=== PATIENT | female | born 1995 | race Caucasian/White ===

== ENCOUNTER 2016-12-30 13:46 | Emergency (ER) | payer OTHER ==
--- NOTE | 2016-12-30 14:58 | UC ---
Psychiatric Complaint HPI - HPI Summary HPI Summary: The patient comes in today for: 1. "Panic attacks" ("limbs are wobbly, stomach is jumbly and nauseated, shortness of breath--getting better, brain is busy, headaches"): Onset: This present condition has been present x 1 hour. Initial onset 16 years of age. Palliative/provocative: Walking, breathing, distractions makes it better. Quality: Usually, she only has shortness of breath and "jumbly" limbs. She states that she can also have "convoluted." Region: [place]. Severity: This panic attack is 7/10 with the previous ones being 4/10 Associated symptoms: Previous treatment: She is only seeing a therapist. She has not had any medications for this. She was hospitalized in July of 2015 here in [place]. Frequency: last one was 1.5 years ago. 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 Fevers: None. Depression: None. No suicidal thoughts or homicidal thoughts. Precipitating events: Several ones have started and have contributed to her anxiety. Stimulants: I cup of coffee a day. She is an [employer] student and she is from [facility]). * - History Of Current Complaint Chief Complaint: UCPsych Stated Complaint: PANIC ATTACK Time Seen by Provider: 12/30/16 14:51 Hx Obtained From: Patient Hx Last Menstrual Period: 12/27/16 ?: No - Allergies/Home Medications Allergies/Adverse Reactions: Allergies Allergy/AdvReac Type Severity Reaction Status Date / Time No Known Allergies Allergy Verified 07/23/15 20:56 PMH/Surg Hx/FS Hx/Imm Hx Previously Healthy: No Endocrine History Of: Denies: Diabetes, Thyroid Disease, Hyperthyroidism, Hypothyroidism, Dyslipidemia Cardiovascular History Of: Denies: Cardiac Disorders, Hypertension, Pacemaker/ICD, Myocardial Infarction , Congestive Heart Failure, Atrial Fibrillation, Deep Vein Thrombosis, Bleeding Disorders Respiratory History Of: Denies: COPD, Asthma, Bronchitis, Pneumonia, Pulmonary Embolism GI/ History Of: Denies: Gastroesophageal Reflux, Ulcer, Gastrointestinal Bleed, Gall Bladder Disease, Kidney Stones, Diverticulitis, Renal Disease, Urosepsis Neurological History Of: Denies: TIA, CVA, Dementia, Seizures, Migraine Psychological History Of: Reports: Anxiety Denies: Depression, Bipolar Disorder, Schizophrenia, Post Traumatic Stress Disorder Cancer History Of: Denies: Lung Cancer, Colorectal Cancer, Breast Cancer, Prostate Cancer, Cervical Cancer Other History Of: Negative For: HIV, Hepatitis B, Hepatitis C - Surgical History Surgical History: None - Family History Known Family History: Positive: Hypertension Negative: Cardiac Disease - Social History Occupation: Student Alcohol Use: Occasionally Substance Use Type: None Smoking Status (MU): Never Smoked Tobacco Review of Systems Constitutional: Negative Skin: Negative Eyes: Negative ENT: Negative Respiratory: Negative Cardiovascular: Negative Gastrointestinal: Negative Genitourinary: Negative All Other Systems Reviewed And Are Negative: Yes Physical Exam Triage Information Reviewed: Yes Appearance: Well-Appearing, No Pain Distress, Well-Nourished Vital Signs: Initial Vital Signs Temp 99.1 F 12/30/16 13:55 Pulse 81 12/30/16 13:55 Resp 16 12/30/16 13:55 BP 98/60 12/30/16 13:55 Pulse Ox 100 12/30/16 13:55 Vital Signs Reviewed: Yes Eyes: Positive: Conjunctiva Clear. Negative: Discharge ENT: Positive: Hearing grossly normal. Negative: Pharyngeal erythema, Nasal congestion, Nasal drainage, TM bulging, TM dull, TM red, Tonsillar swelling, Tonsillar exudate Dental: Negative: Gross Decay/Caries @, Dental Fracture @ Neck: Positive: Supple, Nontender, No Lymphadenopathy. Negative: Nuchal Rigidity Respiratory: Positive: Chest non-tender, Lungs clear, No respiratory distress, No accessory muscle use Cardiovascular: Positive: RRR, No Murmur Abdomen Description: Positive: No Organomegaly, Soft, McBurney's Point Tenderness. Negative: Nontender - She has tenderness of the suprapubic area ( no rebound) and long the LRQ. She has her appendix. There is no rebound in the RLQ and no percussion tenderness of either., Distended, Guarding, Peritoneal Signs Musculoskeletal: Positive: Strength Intact, ROM Intact, No Edema Neurological: Positive: Alert, Muscle Tone Normal, Other: - Neurologic exam: Inspection: No fasciculations. Tone: No rigidity. CN II-XII: no deficit Reflexes: Upper (biceps, triceps, brachioradialis): +2/2 x 2 Lower (patellar, Achilles): +2/2 x 2 Strenth: Upper: (biceps, triceps , deltoid): Normal and symmetrical Lower: (quads, hamstrings, calf, and dorsiflexion): Normal and symmetrical Coordination: Upper: (rapid patting of thighs including alternating, finger tips to thumbs index finger to nose): normal and symmetrical Lower: (heel up and down peter): normal and symmetrical Rhomberg: Normal Gait: Normal. Psychological: Positive: Age Appropriate Behavior, Consolable Skin: Negative: rashes, breakdown Psych Complaint Course/Dx - Course Course Of Treatment: The patient was told that there are many causes of pain--some benign and some. lifethreatening. The patient was also told that of the life-threatening conditions--. they may be present with minimal, atypical and even no symptoms. These facts result in. us having to rely on testing to determine what is causing this pain. We are not. set up to offer all these tests here at the urgent care. The safest thing is to. go to the ER where such testing is available. She refuses to go to the ER. She was also told of her treatment options for her anxiety/panic attacks. She wants to try lorazepam. - Differential Dx/Diagnosis Provider Diagnoses: panic attacks/anxiety. abdominal pain. Discharge - Discharge Plan Condition: Stable Disposition: AGAINST MEDICAL ADVICE Prescriptions: LORazepam TAB(*) [Ativan 0.5 MG TAB (*)] 1 - 2 tab PO Q8H PRN #30 tab MDD 6 PRN Reason: Anxiety Patient Education Materials: Anxiety (ED) Referrals: No Primary Care Phys,NOPCP [Primary Care Provider] - Additional Instructions: Please see the student health center at [facility] or us in about a week to see how well you are doing for your anxiety. If you are not going to the ER for your abdominal pain, please reconsider if your pain gets worse.
[2016-12-30 16:57] VITALS: BP 92/59
== END 2016-12-30 15:54 | disposition left against medical advice (07) ==
LOC: UCEAST 13:46
DX: F41.0 Panic disorder [episodic paroxysmal anxiety] (principal); R10.9 Unspecified abdominal pain
CPT/HCPCS: 99212; G0463

== ENCOUNTER → 2017-05-01 21:30 | Emergency (ER) | payer OTHER ==
[~2017-05-01 21:30] MED LIST: Sulfamethox/Trimethoprim DS 800/160* TAB PO ONE
[2017-05-01 22:09] LABS: Manual Entry Verification ROB0080; UR Preg Internal Control QC Line Present
[2017-05-01 22:12] LABS: Urine Bacteria 1+ (Absent); Urine Bilirubin Negative (Negative); Urine Glucose Negative (Negative); Urine Nitrite Negative (Negative)
--- NOTE | 2017-05-01 23:45 | ED ---
GI/ HPI - HPI Summary HPI Summary: 21 y/o female with h/o UTI in past, now with blood in urine, frequent urination , painful urinatino. + recent sexual intercourse. no fever, no flank pain. no chills. last UTI 10/2016. unknown ABX treatment pt is student at [employer], [facility] states early this week, treated with cranberry pills. - History of Current Complaint Chief Complaint: EDUrogenitalProblems Time Seen by Provider: 05/01/17 23:36 Stated Complaint: BLOOD IN URINE Hx Obtained From: Patient Hx Last Menstrual Period: 12/27/16 Onset/Duration: Started Days Ago Timing: Constant Severity: Mild Current Severity: Moderate Pain Intensity: 9 Location of Pain: Suprapubic Pain Characteristics: Sharp, Burning, Pressure Associated Signs and Symptoms: Positive: Hematuria, Dysuria, UTI Symptoms - Allergy/Home Medications Allergies/Adverse Reactions: Allergies Allergy/AdvReac Type Severity Reaction Status Date / Time No Known Allergies Allergy Verified 07/23/15 20:56 PMH/Surg Hx/FS Hx/Imm Hx Previously Healthy: Yes - h/o uti Endocrine/Hematology History: Denies: Hx Diabetes, Hx Thyroid Disease Cardiovascular History: Denies: Hx Congestive Heart Failure, Hx Deep Vein Thrombosis, Hx Hypertension , Hx Myocardial Infarction, Hx Pacemaker/ICD Respiratory History: Denies: Hx Asthma, Hx Chronic Obstructive Pulmonary Disease (COPD), Hx Lung Cancer, Hx Pneumonia, Hx Pulmonary Embolism GI History: Denies: Hx Gall Bladder Disease, Hx Gastrointestinal Bleed, Hx Ulcer, Hx Urosepsis History: Denies: Hx Kidney Stones, Hx Renal Disease Neurological History: Denies: Hx Dementia, Hx Migraine, Hx Seizures, Hx Transient Ischemic Attacks (TIA) Psychiatric History: Reports: Hx Anxiety Denies: Hx Depression, Hx Schizophrenia, Hx Bipolar Disorder Infectious Disease History: No Infectious Disease History: Reports: Traveled Outside the [place] in Last 30 Days - [place] - Family History Known Family History: Positive: Hypertension Negative: Cardiac Disease - Social History Alcohol Use: Occasionally Substance Use Type: Reports: None Smoking Status (MU): Never Smoked Tobacco Review of Systems Constitutional: Negative Positive: burning, dysuria, frequency, hematuria All Other Systems Reviewed And Are Negative: Yes Physical Exam Triage Information Reviewed: Yes Vital Signs On Initial Exam: Initial Vitals Temp Pulse Resp BP Pulse Ox 97.4 F 76 16 109/63 100 05/01/17 21:39 05/01/17 21:39 05/01/17 21:39 05/01/17 21:39 05/01/17 21:39 Vital Signs Reviewed: Yes Appearance: Positive: Well-Appearing, No Pain Distress, Well-Nourished Skin: Positive: Warm Head/Face: Positive: Normal Head/Face Inspection Abdomen Description: Positive: No Organomegaly, Soft, CVA Tenderness (R) - minimal, Other: - spurapubic tenderness Neurological: Positive: Normal Psychiatric: Positive: Normal - [place] Coma Scale Coma Scale Total: 15 Diagnostics - Vital Signs Vital Signs Temp Pulse Resp BP Pulse Ox 05/01/17 21:41 98.7 F 67 16 109/63 100 05/01/17 21:39 97.4 F 76 16 109/63 100 - Laboratory Lab Results: Lab Results 05/01/17 Range/Units 21:55 Urine Color Red A Urine Appearance Cloudy Urine pH 6.0 (5-9) Ur Specific [place] 1.021 (1.010-1.030) Urine Protein 2+(100 mg/dl) H (Negative) Urine Ketones Negative (Negative) Urine Blood 3+ H (Negative) Urine Nitrate Negative (Negative) Urine Bilirubin Negative (Negative) Urine Urobilinogen Negative (Negative) Ur Leukocyte Esterase 3+ H (Negative) Urine WBC (Auto) 3+(>20/hpf) H (Absent) Urine RBC (Auto) 3+(>10/hpf) H (Absent) Ur Squamous Epith Cells Present H (Absent) Urine Bacteria 1+ H (Absent) Urine Glucose Negative (Negative) Urine Ascorbic Acid Not Reportable Urine Test Negative (Negative) Lab Statement: Any lab studies that have been ordered have been reviewed, and results considered in the medical decision making process. GIGU Course/Dx - Course Course Of Treatment: UA + for bacteria, likely UTI, patient placed on ABX, educated on photosensitivity, f/u with cultures. - Diagnoses Differential Diagnoses - Female: , Pelvic Inflammatory Disease Provider Diagnoses: Urinary tract infection Discharge - Discharge Plan Condition: Stable Disposition: HOME Prescriptions: Sulfamethox/Trimethoprim DS* [Bactrim DS 800/160 TAB*] 1 tab PO BID #10 tab Patient Education Materials: Urinary Tract Infection in Women (ED) Referrals: [facility] [Primary Care Provider] - Additional Instructions: - use back up control until next menses - avoid sunlight while on bactrim - increase fluid intake - follow up with primary physician within 2-3 days if no improvement - return to ER with fever, chills, back pain or increased symptoms
[2017-05-01 23:52] VITALS: BP 108/55
== END | disposition home or self-care (01) ==
LOC: ED 21:30
DX: N39.0 Urinary tract infection, site not specified (principal)
CPT/HCPCS: 81003; 81015; 81025; 87086; 99282; A9270-GY

== ENCOUNTER 2017-11-20 11:39 | Emergency (ER) | payer OTHER ==
--- NOTE | 2017-11-20 12:51 | ED ---
Head Injury - HPI Summary HPI Summary: 22 female presents to ED with complaints of a head injury that occurred last night around 12am~ 13 hours ago. Patient states she had two glasses of wine and then smoked marijuana, felt weak and collapsed to the ground. Unknown LOC however does remember the entire event. States she remembers hitting her head on the floor but denies any signs of trauma. Does have some pain to right back of head that radiates into right neck however no hematoma, bruising or other signs of trauma. States pain is worsened with exertion, has improved since. Denies nausea, vomiting, vision changes, gait disturbance, altered mental status , lethary, trouble concentrating and memory loss. Has not tried any medication for her headache however did not have anything at home too try. States headache is minimal and in the back right area of her head, feels typical. No other complaints of injuries. No PMHx. No anticoagulant use. No history of syncope. - History Of Current Complaint Chief Complaint: EDHeadInjury Stated Complaint: FALL/HEAD INJURY Time Seen by Provider: 11/20/17 12:05 Hx Obtained From: Patient Hx Last Menstrual Period: 12/27/16 Mechanism Of Injury: Fall From A Standing Position Onset/Duration: Started Hours Ago, Traumatic, Still Present, Resolved - some Onset of Pain: Hours, Post Accident Severity Currently: Moderate Severity Initially: Mild Pain Intensity: 5 Pain Scale Used: 0-10 Numeric Location of Head Injury: Occipital Character: Pressure, Aching Aggravating Factor(s): Movement Alleviating Factor(s): Rest Associated Signs And Symptoms: LOC Duration Unknown - unknown if even did lose LOC, patient remembers entire event, Headache - Allergies/Home Medications Allergies/Adverse Reactions: Allergies Allergy/AdvReac Type Severity Reaction Status Date / Time No Known Allergies Allergy Verified 07/23/15 20:56 PMH/Surg Hx/FS Hx/Imm Hx Endocrine/Hematology History: Denies: Hx Diabetes, Hx Thyroid Disease Cardiovascular History: Denies: Hx Congestive Heart Failure, Hx Deep Vein Thrombosis, Hx Hypertension , Hx Myocardial Infarction, Hx Pacemaker/ICD Respiratory History: Denies: Hx Asthma, Hx Chronic Obstructive Pulmonary Disease (COPD), Hx Lung Cancer, Hx Pneumonia, Hx Pulmonary Embolism GI History: Denies: Hx Gall Bladder Disease, Hx Gastrointestinal Bleed, Hx Ulcer, Hx Urosepsis History: Denies: Hx Kidney Stones, Hx Renal Disease Neurological History: Denies: Hx Dementia, Hx Migraine, Hx Seizures, Hx Transient Ischemic Attacks (TIA) Psychiatric History: Reports: Hx Anxiety Denies: Hx Depression, Hx Schizophrenia, Hx Bipolar Disorder - Surgical History Surgery Procedure, Year, and Place: n/a - Immunization History Immunizations Up to Date: Yes Infectious Disease History: No Infectious Disease History: Denies: Traveled Outside the [place] in Last 30 Days - Family History Known Family History: Positive: Hypertension Negative: Cardiac Disease - Social History Alcohol Use: Occasionally Substance Use Type: Reports: None Smoking Status (MU): Never Smoked Tobacco Review of Systems Constitutional: Negative Eyes: Negative ENT: Negative Cardiovascular: Negative Respiratory: Negative Positive: Myalgia - right neck Skin: Negative Positive: Headache All Other Systems Reviewed And Are Negative: Yes Physical Exam Triage Information Reviewed: Yes Vital Signs On Initial Exam: Initial Vitals Temp Pulse Resp BP Pulse Ox 98.8 F 72 18 97/59 98 11/20/17 11:41 11/20/17 11:41 11/20/17 11:41 11/20/17 11:41 11/20/17 11:41 Vital Signs Reviewed: Yes Appearance: Positive: Well-Appearing, No Pain Distress, Well-Nourished Skin: Positive: Warm, Skin Color Reflects Adequate Perfusion, Dry, Other - no hematoma or bruising. Negative: Cold, Numb, Tender, Cyanosis @, Pale, Erythema @ Head/Face: Positive: Normal Head/Face Inspection. Negative: Temporal Artery Tenderness, TMJ Tenderness, Scalp Eyes: Positive: Normal, EOMI, BOB, Conjunctiva Clear, Other: - normal visual acuity ENT: Positive: Normal ENT inspection, Hearing grossly normal, Pharynx normal, TMs normal, Uvula midline. Negative: Pharyngeal erythema, Nasal congestion, Nasal drainage, Tonsillar swelling, Tonsillar exudate Neck: Positive: Supple, Nontender, No Lymphadenopathy, Other: - right side/ musclar tenderness no bony tenderness Respiratory/Lung Sounds: Positive: Clear to Auscultation, Breath Sounds Present. Negative: Rales, Rhonchi, Wheezes Cardiovascular: Positive: Normal, RRR, Pulses are Symmetrical in both Upper and Lower Extremities. Negative: Murmur, Rub Abdomen Description: Positive: Nontender, Soft Bowel Sounds: Positive: Present Musculoskeletal: Positive: Normal, Strength/ROM Intact. Negative: Limited @, Abnormal @, Pain @, Edema Left, Edema Right Neurological: Positive: Normal - memory and concentration intact, normal neuro exam without deficit, Sensory/Motor Intact, Alert, Oriented to Person Place, Time, CN Intact II-III, Reflexes Intact, NV Bundle Intact Distally, Normal Gait , Heel to Toe - normal, Finger to Nose - normal, Facial Symmetry, Speech Normal. Negative: Slurred Speech, Rhomberg - Zack Coma Scale Best Eye Response: 4 - Spontaneous Best Motor Response: 6 - Obeys Commands Best Verbal Response: 5 - Oriented Coma Scale Total: 15 Diagnostics - Vital Signs Vital Signs Temp Pulse Resp BP Pulse Ox 11/20/17 11:41 98.8 F 72 18 97/59 98 - Laboratory Lab Statement: Any lab studies that have been ordered have been reviewed, and results considered in the medical decision making process. Head Injury Course/Dx Course Of Treatment: given ibuprofen while in ED. Patient had normal neuro and physical exam, normal vitals. and is in normal appearance without any concerning signs. according to MARIE/HPI, PE and [place] scan rule did not appear to require any further work up at this time. no concern for other emergent etiology at this time. Patient agreed and understood. Aware of worsening signs and symptoms to watch out for and return immediately if occur. Follow up with PCP for re-check. Increase fluids, rest, refrain from physical activity until symptoms improve. NSAIDs/tylenol for pain, as needed. - Diagnoses Differential Diagnosis/HQI/PQRI: Concussion Without LOC, Contusion, Hematoma, Other - head injry, syncope, lightheadedness, vasovagal, marijuana use Provider Diagnoses: Head injury Discharge - Discharge Plan Condition: Stable Disposition: HOME Patient Education Materials: Head Injury (ED) Referrals: [facility] [Primary Care Provider] - Additional Instructions: Increase fluid intake, get plenty of rest. Take tylenol, or advil to help with pain / inflammation. Refrain from strenuous physical activity until symptoms improve completely. Recommend follow up within 3 days with PCP. Any new or worsening signs/symptoms please seek medical attention and return to ED as discussed (vision changes, gait disturbance, nausea/vomiting, lethargy, altered mental status, increasing headache).
[2017-11-20] MEDS ORDERED: Ibuprofen TAB* 600 MG PO ONE (13:12)
[2017-11-20 13:22] VITALS: BP 110/60
== END 2017-11-20 13:21 | disposition home or self-care (01) ==
LOC: ED 11:39
DX: S09.90XA Unspecified injury of head, initial encounter (principal); W19.XXXA Unspecified fall, initial encounter; Y92.9 Unspecified place or not applicable; F41.9 Anxiety disorder, unspecified
CPT/HCPCS: 99281; A9270-GY